=== PATIENT | male | born 1990 ===

== ENCOUNTER 2021-11-10 19:02 | Emergency (ER) | payer SELFPAY ==
[2021-11-10 19:27] VITALS: BP 160/80
== END 2021-11-10 21:25 | disposition left against medical advice (07) ==
LOC: ED 19:02
DX: R44.0 Auditory hallucinations (principal); Z53.21 Procedure and treatment not carried out due to patient leaving prior to being seen by health care provider

== ENCOUNTER 2022-01-12 12:11 | Emergency (ER) | payer SELFPAY ==
[2022-01-12 12:31] VITALS: BP 122/68
--- NOTE | 2022-01-12 18:19 | Emergency Department Report ---
ED ENT HPI - General Chief complaint: Sore Throat Stated complaint: CHEST /THROAT PAIN /BODYACHE Time Seen by Provider: 01/12/22 16:40 Source: patient Mode of arrival: Ambulatory Limitations: No Limitations - History of Present Illness Initial comments: This is a 31-year-old male nontoxic, well nourished in appearance, no acute signs of distress presents to the ED with 2 complaints: 1) c/o of sore throat x several days. Patient describes sore throat as swallowing razer blades. Patient denies any fever, chills, headache, stiff neck, nausea, vomiting, chest pain, shortness of breath, numbness or tingling. Patient denies any drooling or hoarseness. 2) c/o of intermittent dysuria x several days. Patient denies any penile discharge, bleeding, ulcers or lesions. Patient denies any back or flank pain. Patient denies any pelvic or abdominal pain. Patient denies any nausea, vomiting, chest pain, shortness of breathe, fever, chills, headache, back pain, numbness, tingling, stiff neck. Patient denies any other urinary symptoms. Patient denies any allergies or PMH. MD complaint: sore throat -: days(s) Location: throat Severity: mild Severity scale (0 -10): 3 Quality: burning (UTI) Consistency: intermittent Improves with: none Worsens with: swallowing (sore throat) Associated Symptoms: pain with swallowing, sore throat. denies: fever, cough, gum swelling, toothache, tinnitus, hearing loss, discharge from ear, rhinorrhea - Related Data Previous Rx's Medication Instructions Recorded Last Taken Type Amoxicillin [Amoxicillin TAB] 875 mg PO BID #20 tab 01/12/22 Unknown Rx Allergies Allergy/AdvReac Type Severity Reaction Status Date / Time No Known Allergies Allergy Unverified 11/10/21 19:20 ED Dental HPI - General Chief complaint: Sore Throat Stated complaint: CHEST /THROAT PAIN /BODYACHE Time Seen by Provider: 01/12/22 16:40 Source: patient Mode of arrival: Ambulatory Limitations: No Limitations - Related Data Previous Rx's Medication Instructions Recorded Last Taken Type Amoxicillin [Amoxicillin TAB] 875 mg PO BID #20 tab 01/12/22 Unknown Rx Allergies Allergy/AdvReac Type Severity Reaction Status Date / Time No Known Allergies Allergy Unverified 11/10/21 19:20 ED Review of Systems ROS: Stated complaint: CHEST /THROAT PAIN /BODYACHE Other details as noted in HPI Comment: All other systems reviewed and negative Constitutional: denies: chills, fever Eyes: denies: eye pain, eye discharge, vision change ENT: throat pain. denies: ear pain, dental pain, hearing loss, epistaxis, congestion Respiratory: denies: cough, shortness of breath, wheezing Cardiovascular: denies: chest pain, palpitations Endocrine: no symptoms reported Gastrointestinal: denies: abdominal pain, nausea, diarrhea Genitourinary: dysuria. denies: urgency, frequency, hematuria, discharge, testicular pain, testicular mass Musculoskeletal: denies: back pain, joint swelling, arthralgia Skin: denies: rash, lesions Neurological: denies: headache, weakness, paresthesias Psychiatric: denies: anxiety, depression Hematological/Lymphatic: denies: easy bleeding, easy bruising ED Past Medical Hx - Past Medical History Hx Psychiatric Treatment: Yes (schizophrenia) - Social History Smoking Status: Unknown if ever smoked - Medications Home Medications: Home Medications Medication Instructions Recorded Confirmed Last Taken Type Amoxicillin [Amoxicillin TAB] 875 mg PO BID #20 tab 01/12/22 Unknown Rx ED Physical Exam - General Limitations: No Limitations General appearance: alert, in no apparent distress - Head Head exam: Present: atraumatic, normocephalic - Eye Eye exam: Present: normal appearance - Expanded ENT Exam Expanded Ear exam: Present: normal external inspection Mouth exam: Present: normal external inspection, tongue normal. Absent: drooling, trismus, muffled voice Teeth exam: Present: normal inspection Throat exam: Positive: tonsillar erythema (bilatreal), tonsillomegaly (2+ bilateral), other (uvula midline). Negative: tonsillar exudate, R peritonsillar mass, L peritonsillar mass - Neck Neck exam: Present: normal inspection, full ROM. Absent: tenderness, meningismus, lymphadenopathy - Respiratory Respiratory exam: Absent: respiratory distress - Cardiovascular Cardiovascular Exam: Present: regular rate - GI/Abdominal GI/Abdominal exam: Present: soft. Absent: distended, tenderness - Extremities Exam Extremities exam: Present: full ROM - Back Exam Back exam: Present: normal inspection, full ROM. Absent: tenderness, CVA tenderness (R), CVA tenderness (L), muscle spasm, paraspinal tenderness, vertebral tenderness, rash noted - Neurological Exam Neurological exam: Present: alert, oriented X3, normal gait - Psychiatric Psychiatric exam: Present: normal affect, normal mood - Skin Skin exam: Present: warm, dry, intact, normal color. Absent: rash ED Course Vital Signs 01/12/22 12:26 Temperature 97.9 F Pulse Rate 70 Blood Pressure 122/68 [Right] O2 Sat by Pulse 100 Oximetry - Reevaluation(s) Reevaluation #1: 01/12/22 18:19 Patient is speaking in full sentences with no signs of distress noted. ED Medical Decision Making - Lab Data Lab Results 01/12/22 Range/Units 17:50 Urine Color Yellow (Yellow) Urine Turbidity Cloudy (Clear) Specific [place] (Man) 1.020 (1.003-1.030) Ur Protein (Man) 1+ (Negative) mg/dL Ur Ketones (Man) Negative (Negative) Ur Nitrite (Man) Negative (Negative) Ur Reducing Substances Not Reportable Urine Bilirubin (Man) Negative (Negative) Leukocyte Esterase (Man) Negative (Negative) Urine WBC (Auto) < 1.0 (0.0-6.0) /HPF Urine RBC (Auto) 1.0 (0.0-6.0) /HPF U Epithel Cells (Auto) < 1.0 (0-13.0) /HPF Urine RBC (Manual) Negative (Negative) - Medical Decision Making This is a 31-year-old male that presents with tonsillitis and dysuria. Patient is stable was examined by me. There is no drooling. No tonsillar abscess noted. Uvula is midline. Patient is notified of the UA results with no questions noted by the patient. I will discharge patient with amoxicillin to treat tonsillitis. Vital signs are stable. Patient is not febrile and normal heart rate. Patient was instructed to Follow-up with a primary care doctor in 3-5 days or if symptoms worsen and continue return to emergency room as soon as possible. At time of discharge, the patient does not seem toxic or ill in appearance. No acute signs of distress noted. Patient agrees to discharge treatment plan of care. No further questions noted by the patient. Critical care attestation.: If time is entered above; I have spent that time in minutes in the direct care of this critically ill patient, excluding procedure time. ED Disposition Clinical Impression: Dysuria, Tonsillitis Disposition: 01 HOME / SELF CARE / HOMELESS Is pt being admited?: No Does the pt Need Aspirin: No Condition: Stable Instructions: Tonsillitis, [id number], Dysuria Additional Instructions: Follow-up with a primary care doctor in 3-5 days or if symptoms worsen and continue return to emergency room as soon as possible. Prescriptions: Amoxicillin [Amoxicillin TAB] 875 mg PO BID #20 tab Referrals: PRIMARY CAREMD [Primary Care Provider] - 3-5 Days ZACH BARAJAS MD [Staff Physician] - 3-5 Days Time of Disposition: 18:44
[2022-01-12 18:21] LABS: WBC,Urine < 1.0 /HPF (0.0-6.0)
[2022-01-12 18:29] LABS: Color,Urine Yellow (Yellow)
== END 2022-01-12 18:54 | disposition home or self-care (01) ==
LOC: ED 12:11
DX: J03.90 Acute tonsillitis, unspecified (principal); R30.0 Dysuria; F20.9 Schizophrenia, unspecified; Z79.899 Other long term (current) drug therapy
CPT/HCPCS: 81001; 87591; 99283

== ENCOUNTER 2022-01-16 08:48 | Emergency (ER) | payer SELFPAY ==
[2022-01-16 08:58] VITALS: BP 136/77
--- NOTE | 2022-01-16 11:06 | Emergency Department Report ---
- General Chief complaint: Skin Rash Stated complaint: BODY ITCHING AND CHEST PAIN Time Seen by Provider: 01/16/22 10:22 Source: patient Mode of arrival: Ambulatory Limitations: No Limitations - History of Present Illness Initial comments: 31-year-old male with no significant medical history presents with skin itching. Patient reports has been itching all over his skin for the last 2 weeks, unknown trigger. Reports he was told he has herpes, and needs some blood work to make sure everything is okay with him. He denies fever, no hives, oral swelling, no wheezing, no shortness of breath, no cough cold congestion, no chest pain, no headache dizziness or vision changes. MD complaint: rash -: Gradual Improves with: none Worsens with: none Context: none Associated symptoms: denies other symptoms Treatments Prior to Arrival: none - Related Data Previous Rx's Medication Instructions Recorded Last Taken Type Amoxicillin [Amoxicillin TAB] 875 mg PO BID #20 tab 01/12/22 Unknown Rx Menthol/Camphor [Anti-Itch Lotion] 222 ml TP TID PRN #1 01/16/22 Unknown Rx Allergies Allergy/AdvReac Type Severity Reaction Status Date / Time No Known Allergies Allergy Verified 01/16/22 08:58 Abscess Boil HPI - HPI Chief Complaint: Skin Rash Stated Complaint: BODY ITCHING AND CHEST PAIN Time Seen by Provider: 01/16/22 10:22 Home Medications: Previous Rx's Medication Instructions Recorded Last Taken Type Amoxicillin [Amoxicillin TAB] 875 mg PO BID #20 tab 01/12/22 Unknown Rx Menthol/Camphor [Anti-Itch Lotion] 222 ml TP TID PRN #1 01/16/22 Unknown Rx Allergies/Adverse Reactions: Allergies Allergy/AdvReac Type Severity Reaction Status Date / Time No Known Allergies Allergy Verified 01/16/22 08:58 ED Review of Systems ROS: Stated complaint: BODY ITCHING AND CHEST PAIN Other details as noted in HPI Comment: All other systems reviewed and negative Constitutional: no symptoms reported Eyes: as per HPI ENT: as per HPI Respiratory: denies: cough Cardiovascular: denies: chest pain, palpitations Endocrine: denies: see HPI, excessive sweating, intolerance to cold, intolerance to heat Gastrointestinal: denies: abdominal pain, nausea, vomiting Genitourinary: denies: urgency, dysuria Skin: pruritus. denies: rash, lesions Neurological: denies: headache, weakness, numbness, paresthesias ED Past Medical Hx - Past Medical History Hx Psychiatric Treatment: Yes (schizophrenia) - Social History Smoking Status: Unknown if ever smoked - Medications Home Medications: Home Medications Medication Instructions Recorded Confirmed Last Taken Type Amoxicillin [Amoxicillin TAB] 875 mg PO BID #20 tab 01/12/22 Unknown Rx Menthol/Camphor [Anti-Itch Lotion] 222 ml TP TID PRN #1 01/16/22 Unknown Rx ED Physical Exam - General Limitations: No Limitations General appearance: alert, in no apparent distress - Head Head exam: Present: atraumatic - Eye Eye exam: Present: normal appearance, PERRL - ENT ENT exam: Present: normal exam, normal orophraynx - Neck Neck exam: Present: normal inspection - Respiratory Respiratory exam: Present: normal lung sounds bilaterally. Absent: respiratory distress - Cardiovascular Cardiovascular Exam: Present: regular rate - GI/Abdominal GI/Abdominal exam: Present: soft. Absent: distended, tenderness - Extremities Exam Extremities exam: Present: normal inspection, full ROM - Back Exam Back exam: Present: normal inspection, full ROM. Absent: tenderness - Neurological Exam Neurological exam: Present: alert, oriented X3 - Psychiatric Psychiatric exam: Present: normal mood, other (Appears developmentally delayed but answering questions appropriately and follows commands. No internal). Absent: anxious, homicidal ideation, suicidal ideation - Skin Skin exam: Present: warm, dry, intact, normal color. Absent: rash - Other Other exam information: There is no obvious rash hives or skin irritations noted ED Course Vital Signs 01/16/22 08:55 Temperature 98.4 F Pulse Rate 83 Respiratory 16 Rate Blood Pressure 136/77 [Right] O2 Sat by Pulse 100 Oximetry ED Medical Decision Making - Medical Decision Making Itching skin x2 weeks, afebrile, no obvious skin lesions noted, vital signs stable nontoxic-appearing, Patient stable to be discharged, supportive therapy including topical cream, referral to tobacco farmworker for further testing evaluation. Discussed all of this with patient including p pay attention to possible trigger hygiene, skin care with understanding Patient remained stable nontoxic-appearing, afebrile, ambulating steadily without assistance. Gone over ED findings with patient as well as plan for follow-up. Also discussed return precautions with patient, all questions and concerns addressed. Patient is stable to be discharged follow-up outpatient. Audio voice dictation device used, hence the chart might contain some dictation errors, mispronunciations, wrong spelling and wrong verbiage. Critical care attestation.: If time is entered above; I have spent that time in minutes in the direct care of this critically ill patient, excluding procedure time. ED Disposition Clinical Impression: Itchy skin Disposition: HOME / SELF CARE / HOMELESS Is pt being admited?: No Does the pt Need Aspirin: No Condition: Stable Instructions: Pruritus Referrals: ZACH BARAJAS MD [Staff Physician] - 3-5 Days
== END 2022-01-16 12:00 | disposition home or self-care (01) ==
LOC: ED 08:48
DX: L29.9 Pruritus, unspecified (principal); R21 Rash and other nonspecific skin eruption; F20.9 Schizophrenia, unspecified; Z79.899 Other long term (current) drug therapy
CPT/HCPCS: 99282